=== PATIENT | female | born 1975 | race Two or more races ===

== ENCOUNTER 2017-11-22 01:20 | Emergency (ER) | payer OTHER ==
[~2017-11-22] VITALS: Ht 157.5 cm; Wt 61.2 kg
--- NOTE | 2017-11-22 01:44 | NUR ---
DEE GONZALEZ AT BEDSIDE FOR MSE.
[2017-11-22 01:54] VITALS: BP 138/79
--- NOTE | 2017-11-22 01:54 | NUR ---
Patient discharged to home in stable conditon. Written and verbal after care instructions given. Patient verbalizes understanding of instructions.
== END 2017-11-22 01:55 | disposition home or self-care (01) ==
LOC: ER 01:31
DX: S63.8X1A Sprain of other part of right wrist and hand, initial encounter (principal); W01.0XXA Fall on same level from slipping, tripping and stumbling without subsequent striking against object, initial encounter; Y93.89 Activity, other specified; Y92.89 Other specified places as the place of occurrence of the external cause; Y99.8 Other external cause status
CPT/HCPCS: 99281; A4663

== ENCOUNTER 2018-12-10 12:46 | Emergency (ER) | payer OTHER ==
[~2018-12-10] VITALS: Ht 157.5 cm; Wt 68.0 kg
--- NOTE | 2018-12-10 13:52 | NUR ---
Patient discharged to home in stable conditon. Written and verbal after care instructions given. Patient verbalizes understanding of instructions.
== END 2018-12-10 13:53 | disposition home or self-care (01) ==
LOC: ER 12:46
DX: M77.31 Calcaneal spur, right foot (principal)
CPT/HCPCS: 73610; 73630; A4663

== ENCOUNTER 2019-06-26 11:30 | Emergency (ER) | payer OTHER ==
[~2019-06-26] VITALS: Ht 157.5 cm; Wt 68.0 kg
--- NOTE | 2019-06-26 12:46 | NUR ---
Patient discharged to home in stable conditon. Written and verbal after care instructions given. Patient verbalizes understanding of instructions.
== END 2019-06-26 12:47 | disposition home or self-care (01) ==
LOC: ER 11:30
DX: S16.1XXA Strain of muscle, fascia and tendon at neck level, initial encounter (principal); W18.30XA Fall on same level, unspecified, initial encounter; Y93.89 Activity, other specified; Y92.89 Other specified places as the place of occurrence of the external cause; Y99.8 Other external cause status
CPT/HCPCS: 72050; A4663

== ENCOUNTER 2020-07-19 22:38 | Emergency (ER) | payer OTHER ==
[~2020-07-19] VITALS: Ht 157.5 cm; Wt 72.6 kg
--- NOTE | 2020-07-19 22:47 | NUR ---
Patient walked into ER c/o dog bite on right forearm. Patient states a amharic mane who live in her apartment building got lose from own and bite her on her right forearm. Superficial abrasion noted with bruise. Patient was wearing long sleeve jacket when incident ocurred. Patient spoke with own of dog who states dog is updated with vaccination.
[2020-07-19] MEDS ORDERED: TDAP DIPH,PERTUSS,TET VAC/PF 0.5 ML DISP.SYRIN IM ONE ×2 (23:00→23:03)
[2020-07-19] MEDS ORDERED: IBUPROFEN 600 MG TABLET PO ONE (23:00)
[2020-07-19] MEDS ORDERED: IBUPROFEN 600 MG TABLET ONE (23:05)
--- NOTE | 2020-07-19 23:09 | NUR ---
Patient discharged to home in stable condition. Written and verbal after care instructions given. Patient verbalizes understanding of instructions. Stressed follow up or return to ER for worsening s/s.
[2020-07-19 23:10] VITALS: BP 130/92
== END 2020-07-19 23:12 | disposition home or self-care (01) ==
LOC: ER 22:39
DX: S50.871A Other superficial bite of right forearm, initial encounter (principal); W54.0XXA Bitten by dog, initial encounter; Y93.89 Activity, other specified; Y92.039 Unspecified place in apartment as the place of occurrence of the external cause; Z83.3 Family history of diabetes mellitus; L70.9 Acne, unspecified; Z79.2 Long term (current) use of antibiotics
CPT/HCPCS: 90715; A4663

== ENCOUNTER 2020-07-25 13:25 | Emergency (ER) | payer OTHER ==
[~2020-07-25] VITALS: Ht 157.5 cm; Wt 72.6 kg
--- NOTE | 2020-07-25 14:20 | NUR ---
Patient discharged to home in stable condition. Written and verbal after care instructions given. Patient verbalizes understanding of instructions. Stressed follow up or return to ER for worsening s/s.pt walks in steady gait.
== END 2020-07-25 14:37 | disposition home or self-care (01) ==
LOC: ER 13:26
DX: S93.401A Sprain of unspecified ligament of right ankle, initial encounter (principal); W54.0XXA Bitten by dog, initial encounter; Y93.89 Activity, other specified; Y92.89 Other specified places as the place of occurrence of the external cause; Z83.3 Family history of diabetes mellitus
CPT/HCPCS: 73610; A4663

== ENCOUNTER 2021-04-03 14:00 | Emergency (ER) | payer OTHER ==
[~2021-04-03] VITALS: Ht 157.5 cm; Wt 74.8 kg
--- NOTE | 2021-04-03 14:20 | NUR ---
PATIENT WAS MSE BY DR VAUGHN IN ROOM 03A.
[2021-04-03] MEDS ORDERED: ACETAMINOPHEN 650 MG/20.3 ML LIQUID UDC PO ONE (14:30)
[2021-04-03] MEDS ORDERED: ACETAMINOPHEN ES 500 MG TABLET ONE (14:30)
[2021-04-03 14:36] LABS: HEMATOCRIT 37.8 % (31.2-41.9); MEAN CORPUSCULAR HEMOGLOBIN 32.3 uug (24.7-32.8); MEAN CORPUSCULAR VOLUME 96.3 fL (75.5-95.3); PLATELET COUNT (AUTO) 333 K/uL (179-408)
[2021-04-03 14:55] LABS: CREATININE 0.6 mg/dL (0.6-1.3); POTASSIUM 3.7 mmol/L (3.5-5.1)
[2021-04-03] MEDS ORDERED: MECL-225 PO (16:08)
[2021-04-03 16:34] VITALS: BP 118/71
== END 2021-04-03 16:35 | disposition home or self-care (01) ==
LOC: ER 14:01
DX: S09.90XA Unspecified injury of head, initial encounter (principal); W01.190A Fall on same level from slipping, tripping and stumbling with subsequent striking against furniture, initial encounter; Y92.039 Unspecified place in apartment as the place of occurrence of the external cause; R51.9 Headache, unspecified; R42 Dizziness and giddiness; Z83.3 Family history of diabetes mellitus
CPT/HCPCS: 36415; 70030-TC; 85025; 93005; A4663; A9150

== ENCOUNTER 2023-06-29 12:38 | Emergency (ER) | payer OTHER ==
[~2023-06-29] VITALS: Ht 157.5 cm; Wt 70.3 kg
[~2023-06-29 12:38] MED LIST: MECL-225 PO
[2023-06-29] MEDS ORDERED: AMOX-430 PO (13:11)
[2023-06-29] MEDS ORDERED: FLUT16SP16 BNOSTRILS (13:11)
[2023-06-29 13:23] VITALS: BP 155/87; O2SAT 98
== END 2023-06-29 13:24 | disposition home or self-care (01) ==
LOC: ER 12:38
DX: J32.9 Chronic sinusitis, unspecified (principal); Z79.899 Other long term (current) drug therapy
CPT/HCPCS: A4606; A4663